=== PATIENT | male | born 1985 | race African-American/Black ===

== ENCOUNTER 2017-08-14 19:30 | Emergency (ER) | payer OTHER ==
[2015-07-28 19:30] VITALS: BP 121/67
[~2017-08-14] VITALS: Ht 167.6 cm; Wt 85.3 kg
[~2017-08-14 19:30] MED LIST: HYDR-963 PO; lexapro
--- NOTE | 2017-08-14 19:32 | ED.ADGEN ---
Past History Past Medical History: Anxiety, Other Past Surgical History: No Surgical History, Other Alcohol Use: None Drug Use: None Adult General Chief Complaint Chief Complaint " I covered with this rash.. 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 Thigh cellulitis and diffuse erythemic rash. Patient does have 2 lesions in the middle of the cellulitis left thigh which appear to be insect bites or injection kowalski. Patient denies any travel or specific ill contacts. Patient goes to [place]. No history immunosuppression. Has had the rash on left gluteal and thigh area for the last 2 days and now diffuse rash last 24 hours. Patient is up-to-date with tetanus as of 1 year ago. Patient denies any history of illicit drug use. No History of previous cellulitis or MRSA. 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 Patient denies any new foods or health products or soaps or Hygiene products. Review of Systems Review of Systems Constitutional: Denies fever or chills [] Eyes: Denies change in visual acuity, redness, or eye pain [] HENT: Denies nasal congestion or sore throat [] Respiratory: Denies cough or shortness of breath [] Cardiovascular: No additional information not addressed in HPI [] GI: Denies abdominal pain, nausea, vomiting, bloody stools or diarrhea [] : Denies dysuria or hematuria [] Musculoskeletal: Denies back pain or joint pain [] Integument: Complaints of rash and cellulitis Neurologic: Denies headache, focal weakness or sensory changes [] Endocrine: Denies polyuria or polydipsia [] All other systems were reviewed and found to be within normal limits, except as documented in this note. Family History Family History Noncontributory Current Medications Current Medications Current Medications Medications (Trade) Dose Ordered Sig/Rosenda Start Time Stop Time Status Last Admin Dose Admin Ceftriaxone Sodium 1 gm/ Sodium Chloride 50 ml @ 100 mls/hr 1X ONCE 08/14/17 20:15 08/14/17 20:44 UNV Ceftriaxone Sodium (Rocephin) 1 gm 1X ONCE 08/14/17 20:30 08/14/17 20:31 DC 08/14/17 20:30 1 GM Doxycycline Hyclate (Vibra-Tab) 100 mg 1X ONCE 5/18/18 22:00 08/14/17 22:01 DC Famotidine (Pepcid) 20 mg 1X ONCE 08/14/17 20:30 08/14/17 20:31 DC 08/14/17 20:30 20 MG Lactated Ringer's 1,000 ml @ 1,000 mls/hr Q1H 08/14/17 20:12 08/14/17 21:11 DC 08/14/17 20:12 1,000 MLS/HR Methylprednisolone Sodium Succinate (SOLU-Medrol 125MG VIAL) 125 mg 1X ONCE 08/14/17 20:30 08/14/17 20:31 DC 08/14/17 20:30 125 MG Allergies Allergies Allergies Coded Allergies Type Severity Reaction Last Updated Verified Sulfa (Sulfonamide Antibiotics) Allergy Unknown 10/03/14 No Physical Exam Physical Exam Constitutional: Well developed, well nourished, moderately acute distress, non- toxic appearance. [] HENT: Normocephalic, atraumatic, bilateral external ears normal, oropharynx moist, no oral exudates, nose normal. [] Eyes: PERRLA, EOMI, conjunctiva normal, no discharge. [] Neck: Normal range of motion, no tenderness, supple, no stridor. [] Cardiovascular:Heart rate regular rhythm, no murmur [] Lungs & Thorax: Bilateral breath sounds clear to auscultation [] Abdomen: Bowel sounds normal, soft, no tenderness, no masses, no pulsatile masses. [] Skin: Warm, dry, and a few erythema, and noted cellulitis as per history of present illness Back: No tenderness, no CVA tenderness. [] Extremities: No tenderness, no cyanosis, no clubbing, ROM intact, no edema. [] Neurologic: Alert and oriented X 3, normal motor function, normal sensory function, no focal deficits noted. [] Psychologic: Affect normal, judgement normal, mood normal. [] Current Patient Data Vital Signs Vital Signs Date Time Temp Pulse Resp B/P (MAP) Pulse Ox O2 Delivery O2 Flow Rate FiO2 08/14/17 19:30 98.1 20 99 Room Air Lab Results Laboratory Tests Test 08/14/17 20:20 08/14/17 21:15 White Blood Count 9.0 x10^3/uL (4.0-11.0) Red Blood Count 5.25 x10^6/uL (4.30-5.70) Hemoglobin 16.1 g/dL (13.0-17.5) Hematocrit 46.5 % (39.0-53.0) Mean Corpuscular Volume 89 fL (79-100) Mean Corpuscular Hemoglobin 31 pg (25-35) Mean Corpuscular Hemoglobin Concent 35 g/dL (31-37) Red Cell Distribution Width 13.1 % (11.5-14.5) Platelet Count 292 x10^3/uL (140-400) Neutrophils (%) (Auto) 85 % (31-73) H Lymphocytes (%) (Auto) 6 % (24-48) L Monocytes (%) (Auto) 5 % (0-9) Eosinophils (%) (Auto) 5 % (0-3) H Basophils (%) (Auto) 0 % (0-3) Neutrophils # (Auto) 7.6 x10^3uL (1.8-7.7) Lymphocytes # (Auto) 0.5 x10^3/uL (1.0-4.8) L Monocytes # (Auto) 0.4 x10^3/uL (0.0-1.1) Eosinophils # (Auto) 0.4 x10^3/uL (0.0-0.7) Basophils # (Auto) 0.0 x10^3/uL (0.0-0.2) Sodium Level 140 mmol/L (136-145) Potassium Level 3.5 mmol/L (3.5-5.1) Chloride Level 101 mmol/L (98-107) Carbon Dioxide Level 31 mmol/L (21-32) Anion Gap 8 (6-14) Blood Urea Nitrogen 14 mg/dL (8-26) Creatinine 1.5 mg/dL (0.7-1.3) H Estimated GFR (Cockcroft-Gault) 65.2 Glucose Level 78 mg/dL (70-99) Calcium Level 9.0 mg/dL (8.5-10.1) Total Bilirubin 0.9 mg/dL (0.2-1.0) Direct Bilirubin 0.2 mg/dL (0.0-0.2) Aspartate Amino Transferase (AST) 21 U/L (15-37) Alanine Aminotransferase (ALT) 32 U/L (16-63) Alkaline Phosphatase 93 U/L (46-116) Creatine Kinase 257 U/L (39-308) Troponin I Quantitative < 0.017 ng/mL (0-0.055) Total Protein 8.0 g/dL (6.4-8.2) Albumin 4.3 g/dL (3.4-5.0) Urine Collection Type Unknown Urine Color Yellow Urine Clarity Clear Urine pH 7.0 Urine Specific [place] 1.010 Urine Protein Neg (NEG-TRACE) Urine Glucose (UA) Neg mg/dL (NEG) Urine Ketones (Stick) Neg mg/dL (NEG) Urine Blood Neg (NEG) Urine Nitrite Neg (NEG) Urine Bilirubin Neg (NEG) Urine Urobilinogen Dipstick 0.2 mg/dL (0.2 mg/dL) Urine Leukocyte Esterase Neg (NEG) Urine RBC 0 /HPF (0-2) Urine WBC 0 /HPF (0-4) Urine Squamous Epithelial Cells Occ /LPF Urine Bacteria 0 /HPF (0-FEW) Urine Opiates Screen Neg (NEG) Urine Methadone Screen Neg (NEG) Urine Barbiturates Neg (NEG) Urine Phencyclidine Screen Neg (NEG) Urine Amphetamine/Methamphetamine Neg (NEG) Urine Benzodiazepines Screen Neg (NEG) Urine Cocaine Screen Neg (NEG) Urine Cannabinoids Screen Neg (NEG) Urine Ethyl Alcohol Neg (NEG) EKG EKG [] Radiology/Procedures Radiology/Procedures [] Course & Med Decision Making Course & Med Decision Making Pertinent Labs and Imaging studies reviewed. (See chart for details). Patient to avoid further creatinine supplements until off antibiotics. Patient to take doxycycline 100 mg twice day for the next 10 days. Advised this may make his skin sun sensitive. Patient massage area of cellulitis with Polysporin 4 times a day. Moist heat packs with Epsom salts or salt water. Return if any concerns. Follow-up primary care. Tylenol and ibuprofen for discomfort. [] Final Impression Final Impression 1. Allergic Reaction 2. Cellulitis[] Dragon Disclaimer Dragon Disclaimer This electronic medical record was generated, in whole or in part, using a voice recognition dictation system. ABBIE HARRELL MD August 14, 2017 19:32
[2017-08-14] MEDS ORDERED: IV RINGERS SOLUTION,LACTATED 1,000 ML IV SCH (20:12)
[2017-08-14] MEDS ORDERED: methylPREDNISolone SOD SUCC PF 125 MG/2 ML VIAL. IV ONE (20:30)
[2017-08-14] MEDS ORDERED: FAMOTIDINE 20 MG TABLET PO ONE (20:30)
[2017-08-14] MEDS ORDERED: cefTRIAXone IV Push 1 GM VIAL. IVP ONE (20:30)
[2017-08-14 20:40] LABS: BASO % 0 % (0-3); EOS # 0.4 x10^3/uL (0.0-0.7); EOS % 5 % (0-3); HEMATOCRIT 46.5 % (39.0-53.0); HEMOGLOBIN 16.1 g/dL (13.0-17.5); LYMPH # 0.5 x10^3/uL (1.0-4.8); LYMPH % 6 % (24-48); MEAN CORPUSCULAR HEMOGLOBIN 31 pg (25-35); MEAN CORPUSCULAR HGB CONC 35 g/dL (31-37); MEAN CORPUSCULAR VOLUME 89 fL (79-100); MONO # 0.4 x10^3/uL (0.0-1.1); MONO % 5 % (0-9); NEUT # 7.6 x10^3uL (1.8-7.7); NEUT % 85 % (31-73); PLATELET COUNT 292 x10^3/uL (140-400); RED BLOOD COUNT 5.25 x10^6/uL (4.30-5.70); RED CELL DISTRIBUTION WIDTH 13.1 % (11.5-14.5)
[2017-08-14 20:51] LABS: ALBUMIN 4.3 g/dL (3.4-5.0); CREATININE 1.5 mg/dL (0.7-1.3); DIRECT BILIRUBIN 0.2 mg/dL (0.0-0.2); GFR 65.2; POTASSIUM 3.5 mmol/L (3.5-5.1); TOTAL BILIRUBIN 0.9 mg/dL (0.2-1.0)
[2017-08-14 21:41] LABS: BARBITURATES NEG (NEG); BENZODIAZEPINES NEG (NEG); CANNABINOIDS NEG (NEG); COCAINE NEG (NEG); METHADONE NEG (NEG); OPIATES NEG (NEG); PHENCYCLIDINE NEG (NEG)
[2017-08-14 21:46] LABS: AMPHETAMINE/METHAMPHETAMINE NEG (NEG)
[2017-08-14] MEDS ORDERED: DOXY100T9 PO (21:48)
[2017-08-14] MEDS ORDERED: PRED50TA PO (21:48)
[2017-08-14 21:56] LABS: BILIRUBIN,URINE NEG (NEG); CLARITY,URINE CLEAR; COLOR,URINE YELLOW; GLUCOSE,URINE NEG (NEG)
[2017-08-14 21:57] LABS: BACTERIA,URINE 0 /HPF (0-FEW); NITRITE,URINE NEG (NEG); RBC,URINE 0 /HPF (0-2); SQUAMOUS EPITHELIAL CELL,UR OCC /LPF; UROBILINOGEN,URINE 0.2 mg/dL (0.2 mg/dL); WBC,URINE 0 /HPF (0-4)
[2017-08-14] MEDS ORDERED: DOXYCYCLINE HYCLATE 100 MG TABLET PO ONE (22:00)
== END 2017-08-14 22:15 | disposition home or self-care (01) ==
LOC: ER 19:30
DX: L03.116 Cellulitis of left lower limb (principal); T78.40XA Allergy, unspecified, initial encounter; F41.9 Anxiety disorder, unspecified; Z88.2 Allergy status to sulfonamides; X58.XXXA Exposure to other specified factors, initial encounter
CPT/HCPCS: 36415; 80048; 80076; 80307; 81001; 82550; 84484; 85025; 96374; 96375; 99284; J0696; J2930; J7120; G0479